=== PATIENT | male | born 1965 | race African-American/Black ===

== ENCOUNTER 2022-05-21 08:35 | Outpatient (CLI) | payer BC | END 2022-05-21 08:36 | disposition home or self-care (01) | LOC: SCSMRI 08:35 | PROVIDERS: ATTEND Specialist | DX: M51.17 Intervertebral disc disorders with radiculopathy, lumbosacral region (principal); M47.22 Other spondylosis with radiculopathy, cervical region; M51.37 Other intervertebral disc degeneration, lumbosacral region; M48.02 Spinal stenosis, cervical region | CPT/HCPCS: 72141; 72148 ==